=== PATIENT | female | born 2005 | race Caucasian/White ===

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

== ENCOUNTER → 2024-10-03 13:47 | Outpatient (REF) | payer BC, SELFPAY | LOC: HWRCS 13:47 | PROVIDERS: ATTENDING PHYSICIAN Nurse Practitioner; FAMILY PHYSICIAN Family Medicine | DX: I34.1 Nonrheumatic mitral (valve) prolapse (principal) | CPT/HCPCS: 93306 ==